=== PATIENT | male | born 2000 | race Hispanic/Latino ===

== ENCOUNTER 2019-03-31 10:10 | Emergency (ER) | payer OTHER ==
[2019-03-31] MEDS ORDERED: ACETAMINOPHEN EXTRA STRENGTH 500 MG TABLET ONE (10:20)
[2019-03-31 10:44] LABS: RAPID GROUP A STREP NEGATIVE (NEGATIVE)
[2019-03-31] MEDS ORDERED: ONDANSETRON ODT 4 MG TAB ONE (10:45)
== END 2019-03-31 11:14 | disposition home or self-care (01) ==
LOC: EDH 10:10 → EEVIPCON 10:10 → EDH 11:14
DX: B34.9 Viral infection, unspecified (principal); Z88.0 Allergy status to penicillin
CPT/HCPCS: 87804; 87880